=== PATIENT | male | born 1960 | race Caucasian/White ===

== ENCOUNTER → 2025-05-20 | Day surgery (SDC) | payer OTHER ==
[2025-05-13 14:17] LABS: MEAN PLATELET VOLUME 8.9 FL (7.4-10.4); PRE OP HEMATOCRIT 44.8 % (42.0-52.0); PRE OP HEMOGLOBIN 14.8 g/dL (14.0-17.9); PRE OP PLATELET COUNT 249 X10'3 (140-440); PRE OP WHITE BLOOD COUNT 8.4 10'3 (4.8-10.8); RED CELL DISTRIBUTION WIDTH 14.9 % (11.5-14.5)
--- NOTE | 2025-05-13 14:22 | ELECTROCARDIOGRAPH REPORT ---
[facility] Test Date: 2025-05-13 Test Time: 14:20:22 Pat Name: NATALYA BRUCE Department: [facility]-PRE[facility]OP Patient ID: [id number] Room: Gender: M Banana Expert: ANDREW : 1960 Requested By: MOY TOMPKINS Order Number: [id number] Reading MD: Dr. RADHA Dawkins Measurements Intervals [place] Rate: 60 P: 83 MT: 174 QRS: 84 QRSD: 96 T: 88 QT: 413 QTc: 413 Interpretive Statements Sinus rhythm Borderline right axis deviation Electronically Signed On 05-14-2025 16:27:[address] RADHA Dawkins Please click the below link to view image of tracing.
[2025-05-13 14:35] LABS: CREATININE 1.04 MG/DL (0.60-1.10); PRE OP ALT 23 U/L (30-65); PRE OP ANION GAP 8 (8-16); PRE OP AST 13 U/L (10-37); PRE OP BILIRUB, TOTAL 0.4 MG/DL (0.0-1.0); PRE OP GLUCOSE 86 MG/DL (70-104); PRE OP POTASSIUM 4.4 MMOL/L (3.4-5.1); PRE OP SODIUM 146 MMOL/L (135-145); TOTAL CARBON DIOXIDE 30.4 MMOL/L (24-32); eGFR 72 ML/MIN
--- NOTE | 2025-05-17 15:17 | RADIOLOGY REPORT ---
CLINICAL HISTORY: PREOP TECHNIQUE: Chest 2 views of the chest were obtained. COMPARISON: None FINDINGS: The heart size and pulmonary vasculature are normal. The lungs are clear. No pleural effusion is present. IMPRESSION: NO ACUTE CARDIOPULMONARY PROCESS.
[2025-05-20] VITALS (10 sets, daily range): BP systolic 90–143; BP diastolic 60–84; PULSE 53–83; RESP 10–16; TEMP 98.2; O2SAT 89–100
[~2025-05-20] VITALS: Ht 190.5 cm; Wt 91.0 kg
[~2025-05-20] MED LIST: ASPI-529 PO; BUPIVACAINE liposomal/PF 13.3 MG/ML 10mL vial IM ONE; BUPIVAcaine 2.5mg/ml inj 50ml vial (contains preservative) ONE; BUPIVAcaine/PF 2.5mg/ml (0.25%) 10ml vial ONE; HYDROcodone/acetaminophen 5mg/325mg tablet PO PRN; HYDROmorphone/PF 0.2 MG/ML SYRINGE IV PRN; LEVO200T8 PO; LIDOcaine 1% 30ml preserv. free vial ONE; LIDOcaine 1%/PF 5ML 10 MG/ML VIAL ONE; dexamethasone sod phosphate 4mg/ml inj. ONE; enalaprilat 1.25mg/ml 2ml vial IV PRN; fentaNYL /PF 50mcg/ml 5ml ampule ONE; fentaNYL/PF 50MCG/1 ML 2ML syringe IV PRN; glycopyrrolate 0.2mg/ml inj ONE; labetalol 20mg/4ml (5mg/ml) syringe IV PRN; midazolam 1 mg/ML 2ml injection ONE; morphine 4 MG/ML inj SYRINge IV PRN; ondansetron/PF 4mg/2ml inj IV PRN; ondansetron/PF 4mg/2ml inj ONE; propofol inj 20 ML IV ONE; ringers solution, lacted 1,000 ML IV SCH; rocuronium 10mg/ml inj IV ONE
[2025-05-20] MEDS: ceFAZolin 2gm/dext,iso 50mL 50 ML IV ONE (11:01)
--- NOTE | 2025-05-20 12:25 | HISTORY AND PHYSICAL ---
History & Physical Providers to CC CC: MOY TOMPKINS MD ~ History of Present Illness Reason for Admit\Complaint: Bilateral inguinal hernia, ventral hernia History of Present Illness Interval history and physical exam Patient here today for elective repair of his bilateral inguinal hernias as well as his ventral hernia He was seen in the office greater than 30 days ago but denies any change in his past medical history (please see previous history and physical exam for all pertinent details) He is scheduled for robotic assisted, laparoscopic bilateral inguinal hernia repairs with mesh as well as a ventral hernia repair, possible mesh. Allergies: Coded Allergies: No Known Allergies (Unverified , 05/19/25) Home Medications Home Medications Active Reported Baby Aspirin (Aspirin) 81 Mg Tab.chew 1 Tab PO DAILY Levothyroxine Sodium 200 Mcg Tablet 1 Tab PO DAILY ROS ROS Reviewed and negative Exam Vitals: Vital Signs Date Time Temp Pulse Resp B/P (MAP) Pulse Ox O2 Delivery O2 Flow Rate FiO2 05/20/25 11:30 54 16 100 05/20/25 11:25 Room Air Chest: Lungs clear to auscultation bilaterally Cardiovascular: Regular rate and rhythm without murmur Abdomen: Soft and nondistended Ventral hernia Problems: (1) Bilateral inguinal hernia (2) Ventral hernia Assessment & Plan: Ventral hernia repair, possible mesh as well as robotic assisted, laparoscopic bilateral inguinal hernia repairs with mesh were discussed with the patient. Risks include, but are not limited to, bleeding, infection, injury to intra-abdominal structures, hernia recurrence and chronic postoperative pain. Patient verbalized understanding and wishes to proceed with surgery. We will do so today as scheduled MOY TOMPKINS MD May 20, 2025 12:25
--- NOTE | 2025-05-20 16:18 | OPERATIVE REPORT ---
Operative Report Providers to CC CC: MARCOS TOMPKINS MD ~ Date of Procedure: May 20, 2025 Pre-Operative Diagnosis: Ventral hernia, bilateral inguinal hernia Post-Operative Diagnosis 2 cm incarcerated ventral hernia Bilateral indirect inguinal hernias Procedure Performed 2 cm incarcerated ventral hernia repair Robotic assisted, laparoscopic bilateral inguinal hernia repairs with mesh Surgeon: Marcos Tompkins MD FACS [employer] None Anesthesiologist: Adolfo Sinclair Type of Anesthesia: General Findings: Bilateral indirect inguinal hernias 2 cm ventral hernia with a large amount of incarcerated preperitoneal fat Wound class I Complications None Prosthetics\Implants used: Large left Dextile mesh Estimated Blood Loss: Minimal Specimen Removed: Hernia sac and incarcerated preperitoneal fat excised and discarded Description of Procedure: Patient was brought to the operating room and identified by the nursing staff and the attending physician. Patient was placed supine and general anesthesia was induced. The patient's abdomen was prepped and draped in the standard sterile fashion. Preoperative antibiotics were given. Supraumbilical, midline incision was made to accommodate a 12 mm Burt port. This was done over a palpable mass. A fairly large hernia sac was encountered. This was mobilized away from the surrounding soft tissue and down to the level of the fascia. Ultimately the hernia sac was opened and found to contain incarcerated preperitoneal fat. This was cross clamped at the level of the fascia, amputated and suture ligated. Hernia sac and incarcerated fat was passed off the field to be discarded. Defect measured 2 cm in diameter and was used for Burt port placement. Burt technique was used to gain access into the abdomen and the port was anchored to the fascia with 0 Vicryl suture. Abdomen was insufflated without incident. Laparoscope was inserted and the pelvis examined. Patient was placed in Trendelenburg position. Secondary, 8.5 mm robotic trochars were then placed in the right lateral left lateral upper abdomen just above the umbilical line. These were placed under laparoscopic guidance. Local anesthetic was infiltrated prior to their i nsertion. The da Zhane robotic arm was docked to the patient. Instruments were guided intra-abdominally under laparoscopic visualization. Peritoneal rent was created starting at the left anterior superior iliac spine and carried across the anterior abdominal wall to the contralateral anterior superior iliac spine. The peritoneal flap was created and carried down to the symphysis pubis. Dissection was carried out bilaterally. On the left, there was a fairly large indirect defect on the right there was a moderate-sized indirect defect. Contents were completely reduced. Peritoneum was dissected away from the cord structures and out laterally to accommodate 2 separate pieces of large Dextile mesh. Bilateral critical views of the myopectineal orifice were obtained. Mesh and suture was passed into the abdomen. Bilateral mesh was placed covering potential obturator, femoral, direct, and indirect hernia spaces. Mesh was anchored at Jimi's ligament, rectus muscle in the midline, and out laterally just anterior to the anterior superior iliac spine. Mesh laid without wrinkles or folds. Peritoneal rent was then reapproximated with running, absorbable 2/0 V-lock suture. Etoile were retrieved. Abdomen was allowed to desufflate after instruments removed and da Zhane robotic arm undocked from the patient. Umbilical port was removed as were the secondary trochars. The fascia at the umbilical port site was closed with 0 Vicryl sutures. Skin was closed at all sites with 4-0 Monocryl sutures in a subcuticular fashion. Sterile dressings were applied. Patient was awakened and taken to the postanesthesia care unit in stable condition. Counts repoted as correct: Yes MARCOS TOMPKINS MD May 20, 2025 16:18
== END | disposition home or self-care (01) ==
LOC: PRE-OP 10:02
PROVIDERS: ATTEND Surgery
DX: K43.6 Other and unspecified ventral hernia with obstruction, without gangrene (principal); K40.20 Bilateral inguinal hernia, without obstruction or gangrene, not specified as recurrent; Z98.890 Other specified postprocedural states; Z79.899 Other long term (current) drug therapy; Z79.82 Long term (current) use of aspirin; F17.210 Nicotine dependence, cigarettes, uncomplicated
CPT/HCPCS: 36415; 49592; 49650; 71046; 80053; 82948; 85025; 93005; C1781; J0666; J1100; J2003; J2250; J2405; J2704; J3010; J3490; J7030; J7120; Z7506; Z7508; Z7512; A4215; A4618